=== PATIENT | female | born 1990 | race Caucasian/White ===

== ENCOUNTER 2017-08-14 20:04 | Emergency (ER) | payer BC, MEDICAID ==
[2017-08-14 20:22] VITALS: BP 118/70
[2017-08-14] MEDS ORDERED: cefTRIAXone 250 MG VIAL IM STA (20:29)
[2017-08-14] MEDS ORDERED: metroNIDAZOLE 250 MG TABLET PO STA (20:29)
[2017-08-14] MEDS ORDERED: AZITHROMYCIN 250 MG TABLET PO STA (20:29)
[2017-08-14] MEDS ORDERED: lamiVUDine/ZIDOVUDINE 150 MG/300 MG TABLET PO STA (20:30)
[2017-08-14] MEDS ORDERED: RALTEGRAVIR 400 MG TABLET PO STA (20:30)
--- NOTE | 2017-08-14 20:32 | ED Physician Documentation ---
History of Present Illness - Stated complaint Stated Complaint: FEMALE - Chief complaint Chief Complaint: General - History obtained from History obtained from: Patient - History of Present Illness Timing: Other (She was having sex last night with a new partner and the condom broke. She already took Plan B but would like to seek options for post exposure prophylaxis for STDs and HIV.) Review of Systems Constitutional: reports: Reviewed and negative Cardiac: reports: Reviewed and negative Respiratory: reports: Reviewed and negative PD PAST MEDICAL HISTORY - Past Medical History Endocrine/Autoimmune: None - Past Surgical History Past Surgical History: Yes General: Appendectomy - Present Medications Home Medications: Ambulatory Orders Medication Instructions Recorded Confirmed Lamivudine/Zidovudine [Combivir 1 each PO BID #60 tablet 08/14/17 Tablet] Raltegravir [Isentress] 400 mg PO BID #60 tablet 08/14/17 - Allergies Allergies/Adverse Reactions: Allergies Allergy/AdvReac Type Severity Reaction Status Date / Time iodine Allergy Rash Verified 08/14/17 20:21 - Social History Does the pt smoke?: No Smoking Status: Never smoker Does the pt drink ETOH?: No Does the pt have substance abuse?: No - Immunizations Immunizations are current?: Yes - POLST Patient has POLST: No PD ED PE NORMAL - Vitals Vital signs reviewed: Yes - General General: Alert and oriented X 3, No acute distress - Abdomen Abdomen: Soft, Non tender - Derm Derm: Normal color, Warm and dry - Neuro Neuro: Alert and oriented X 3, Normal speech Results - Vitals Vitals: Vital Signs - 24 hr 08/14/17 20:17 Temperature 36.7 C Heart Rate 60 Respiratory 18 Rate Blood Pressure 118/70 O2 Saturation 99 Oxygen O2 Source Room air PD MEDICAL DECISION MAKING - ED course ED course: She was very interested in post exposure prophylaxis for STDs and HIV. We discussed the pros and cons of each and she wanted to go through with all of them understanding that she would have to take the HIV regimen for a month unless her new boyfriend tested negative. Departure - Departure Disposition: 01 Home, Self Care Clinical Impression: Sexually transmitted disease exposure Condition: Good Record reviewed to determine appropriate education?: Yes Instructions: STDs Prescriptions: Lamivudine/Zidovudine [Combivir Tablet] 1 each PO BID #60 tablet Raltegravir [Isentress] 400 mg PO BID #60 tablet Comments: Here you received prophylaxis for gonorrhea, chlamydia, trichomoniasis. The prescription is for HIV prophylaxis, please have your new partner tested and if negative you can probably stop taking this. Call your doctor to arrange a follow-up appointment, make the next available appointment. In the interim, return anytime if worse or if new symptoms develop.
[2017-08-14] MEDS ORDERED: metroNIDAZOLE 250 MG TABLET PO ONE (20:37)
[2017-08-14] MEDS ORDERED: AZITHROMYCIN 250 MG TABLET PO ONE (20:38)
[2017-08-14] MEDS ORDERED: cefTRIAXone 250 MG VIAL ONE (20:38)
[2017-08-14] MEDS ORDERED: LIDOCAINE 1% 2 ML VIAL ONE (20:38)
[2017-08-14] MEDS ORDERED: RALTEGRAVIR 400 MG PO ONE (20:49)
[2017-08-14] MEDS ORDERED: lamiVUDine/ZIDOVUDINE 150 MG/300 MG Prepack 2 PO ONE (20:50)
[2017-08-14] MEDS ORDERED: RALTEGRAVIR 400 MG PO STA (20:53)
[2017-08-14] MEDS ORDERED: lamiVUDine/ZIDOVUDINE 150 MG/300 MG Prepack 2 PO SCH (21:00)
== END 2017-08-14 21:05 | disposition home or self-care (01) ==
LOC: ED 20:04
DX: Z20.2 Contact with and (suspected) exposure to infections with a predominantly sexual mode of transmission (principal)
CPT/HCPCS: 36415; 84703; 87389; 87491; 87591; 96372; 99283; A9270

== ENCOUNTER 2017-09-20 08:00 | Outpatient (CLI) | payer BC, MEDICAID ==
[2017-09-21 08:14] LABS: TEST RESULT REPORT
== END 2017-09-20 08:01 | disposition home or self-care (01) ==
LOC: LAB.S 08:00
PROVIDERS: ATTEND Nurse Practitioner Family
DX: Z20.2 Contact with and (suspected) exposure to infections with a predominantly sexual mode of transmission (principal)
CPT/HCPCS: 36415; 81599; 86592; 86695; 86696; 87389

== ENCOUNTER 2018-01-04 11:34 | Outpatient (CLI) | payer BC, MEDICAID ==
[2018-01-04 12:10] LABS: BASOPHILS # (AUTO) 0.1 10^3/uL (0.0-0.1); BASOPHILS % (AUTO) 1.2 %; EOSINOPHILS # (AUTO) 0.1 10^3/uL (0.0-0.7); EOSINOPHILS % (AUTO) 2.3 %; HGB - HEMOGLOBIN 14.7 g/dL (12.0-16.0); LYMPHOCYTES # (AUTO) 1.7 10^3/uL (1.5-3.5); LYMPHOCYTES % (AUTO) 32.7 %; MEAN CORPUSCULAR HEMOGLOBIN 30.4 pg (27.0-31.0); MEAN CORPUSCULAR HGB CONC 33.9 g/dL (32.0-36.0); MEAN CORPUSCULAR VOLUME 89.6 fL (81.0-99.0); MEAN PLATELET VOLUME 6.9 fL (7.9-10.8); MONOCYTES # (AUTO) 0.3 10^3/uL (0.0-1.0); MONOCYTES % (AUTO) 5.6 %; NEUTROPHILS # (AUTO) 3.1 10^3/uL (1.5-6.6); NEUTROPHILS % (AUTO) 58.2 %; PLT - PLATELET COUNT 283 10^3/uL (130-450); RED BLOOD COUNT 4.84 10^6/uL (4.20-5.40); RED CELL DISTRIBUTION WIDTH 12.3 % (12.0-15.0); WHITE BLOOD COUNT 5.3 x10^3/uL (4.8-10.8)
[2018-01-04 12:16] LABS: INR 1.1 (0.8-1.2); PT - PROTHROMBIN TIME 12.4 secs (9.9-12.6)
[2018-01-05 12:31] LABS: HIV AG/AB 4TH GEN NON-REACTIVE (NON-REACTIVE)
== END 2018-01-04 11:35 | disposition home or self-care (01) ==
LOC: LAB 11:34
PROVIDERS: ATTEND Nurse Practitioner Family
DX: Z83.2 Family history of diseases of the blood and blood-forming organs and certain disorders involving the immune mechanism (principal); Z20.2 Contact with and (suspected) exposure to infections with a predominantly sexual mode of transmission
CPT/HCPCS: 36415; 81599; 85025; 85610; 85730; 87389

== ENCOUNTER 2018-04-21 11:18 | Outpatient (CLI) | payer MEDICAID ==
[2018-04-22 14:38] LABS: HIV AG/AB 4TH GEN NON-REACTIVE (NON-REACTIVE)
== END 2018-04-21 11:19 | disposition home or self-care (01) ==
LOC: LAB.F 11:18
PROVIDERS: ATTEND Nurse Practitioner Family
DX: Z20.2 Contact with and (suspected) exposure to infections with a predominantly sexual mode of transmission (principal)
CPT/HCPCS: 36415; 87389